=== PATIENT | female | born 1970 | race Caucasian/White ===

== ENCOUNTER → 2021-08-31 | Outpatient (CLI) | payer OTHER ==
[2021-08-31 13:34] LABS: ABSOLUTE BASOPHILS 0.1 thou/uL (0.0-0.2); ABSOLUTE EOSINOPHILS 0.1 thou/uL (0.0-0.7); ABSOLUTE LYMPHOCYTES 1.2 thou/uL (0.8-5.3); ABSOLUTE MONOCYTES 0.4 thou/uL (0.0-1.2); ABSOLUTE NEUTROPHILS 4.2 thou/uL (1.6-8.1); EOSINOPHILS 1.7 %; HEMATOCRIT 43.1 % (37.0-47.0); HEMOGLOBIN 14.6 gm/dL (12.0-15.0); LYMPHOCYTES 20.3 %; MCH 30.2 pg (26.0-34.0); MCHC 33.9 g/dL (28.0-37.0); MONOCYTES 6.1 %; MPV 7.3 fl. (7.2-11.1); NUCLEATED RBCS 0 /100WBC; PLATELET COUNT* 337 thou/uL (150-400); POLYS 70.9 %; RBC 4.84 mil/uL (4.20-5.00); RDW-CV 13.3 % (10.5-14.5); WBC 5.9 thou/uL (4.0-11.0)
[2021-08-31 13:48] LABS: CALCIUM 9.2 mg/dL (8.5-10.1); CREATININE 0.9 mg/dL (0.6-1.3); POTASSIUM 3.9 mmol/L (3.5-5.1)
[2021-08-31 13:53] LABS: ALBUMIN 4.4 g/dL (3.4-5.0); TOTAL BILIRUBIN 0.6 mg/dL (<0.1-1.0); TOTAL PROTEIN 7.7 g/dL (6.4-8.2)
== END ==
LOC: M.LAB 12:27
PROVIDERS: ATTEND Internal Medicine
DX: R07.9 Chest pain, unspecified (principal)